=== PATIENT | male | born 1990 | race Asian ===

== ENCOUNTER 2024-05-14 17:35 | Emergency (ER) | payer MEDICAID ==
[~2024-05-14] VITALS: Ht 172.7 cm; Wt 56.0 kg
[2024-05-14] MEDS ORDERED: AMOX500C2 PO (18:51)
[2024-05-14 18:56] VITALS: BP 129/62; PULSE 89; RESP 15; TEMP 98.2; O2SAT 98
== END 2024-05-14 18:58 | disposition home or self-care (01) ==
LOC: ER 17:36
DX: H66.92 Otitis media, unspecified, left ear (principal)
CPT/HCPCS: 99283